=== PATIENT | female | born 1965 | race Caucasian/White ===

== ENCOUNTER 2018-08-31 06:10 | Day surgery (SDC) | payer BC ==
[2018-08-31] MEDS ORDERED: DIPRIVAN 200 MG/20 ML IV ONE (06:11)
[2018-08-31] MEDS ORDERED: Ketamine HCl 50 MG/ML IJ ONE (06:11)
[2018-08-31] MEDS ORDERED: Lactated Ringers 1,000 ML IV SCH (07:00)
[2018-08-31 09:10] VITALS: BP 146/82; PULSE 66; O2SAT 97
--- NOTE | 2018-08-31 10:13 | OP ---
SURGERY DATE/TIME: 08/31/2018 0807 PREOPERATIVE DIAGNOSIS: Screening exam. POSTOPERATIVE DIAGNOSIS: Normal colon. PROCEDURE: Colonoscopy. SURGEON: Dr. Dooley. ANESTHESIA: MAC. Medications given by anesthesia department. HISTORY: The patient is a 53 year-old white female presenting now for colonoscopy. She was appraised of the risks of the procedure including the risk of perforation, phlebitis, untoward reaction to medication, bleeding and missed lesions. The patient verbalized her understanding and desired to have the procedure performed. DESCRIPTION OF PROCEDURE: The patient was given the medications by the anesthesia department. She had continuous pulse oximetry, ECG monitoring, intermittent blood pressure monitoring and tidal CO2 monitoring during the examination. She was placed in the left lateral decubitus position. A digital rectal examination was performed and revealed normal anal sphincter tone and no masses. The flexible Olympus pediatric colonoscope was used to intubate the rectum. A view of the colon was developed sequentially to the cecum. Upon insertion and withdrawal, including a retroflex view in the rectum, no mucosal lesions were encountered. The scope was removed from the patient who tolerated the procedure well and was sent back to OP recovery in good condition. The prep was noted to be fair to good.
== END 2018-08-31 09:45 | disposition home or self-care (01) ==
LOC: SDC 06:10
PROVIDERS: ATTEND Family Medicine
DX: Z12.11 Encounter for screening for malignant neoplasm of colon (principal)
CPT/HCPCS: 94250; J2704

== ENCOUNTER 2023-06-19 15:11 | Emergency (ER) | payer BC, OTHER ==
[2023-06-19] MEDS ORDERED: TORAdol 30 mg Injection IV ONE (15:24)
[2023-06-19] MEDS ORDERED: Zofran 4 MG/2 ML VIAL IV ONE (15:24)
[2023-06-19] MEDS ORDERED: Sodium Chloride 0.9% 1000 ML 1,000 ML IV STA (15:24)
--- NOTE | 2023-06-19 15:24 | ERPHSYRPT ---
- History of Present Illness Historian: patient Exam Limitations: no limitations Hx Influenza Vaccination/Date Given: Yes Hx Pneumococcal Vaccination/Date Given: Yes <ZOHRA HARE - Last Filed: 06/19/23 18:54> <KARO COLLINS - Last Filed: 06/19/23 21:04> - History of Present Illness Time Seen by Provider: 06/19/23 15:16 Physician History: For the past 3 days pt has had sharp constant right lower back pain, RLQ abdominal pain and right flank pain up to 10/10 in severity. LBM was 6 days ago & without blood. Pt also c/o shortness of air and minimal chest pain for the past 2 hours. Pt denies nausea and vomiting. (ZOHRA HARE) Allergies/Adverse Reactions: prochlorperazine edisylate [From Compazine] Allergy (Verified 06/19/23 15:19) tongue swollen prochlorperazine maleate [From Compazine] Allergy (Verified 06/19/23 15:19) tongue swollen Home Medications: Levothyroxine Sodium 100 Mcg [Synthroid 100 Mcg] 75 mcg PO DAILY 10/04/13 [History] buPROPion HCL [Wellbutrin Sr] See Rx Instructions .ROUTE .COMPLEX 08/22/18 [History] Amlodipine Besylate 5 mg [Norvasc 5 mg] 5 mg PO HS 06/19/23 [History] Ascorbic Acid [Vitamin C] 1,000 mg PO DAILY 06/19/23 [History] Atenolol 50 mg [Tenormin 50 mg] 50 mg PO DAILY 06/19/23 [History] Cariprazine HCl [Vraylar] 3 mg PO DAILY 06/19/23 [History] Desvenlafaxine Succinate [Desvenlafaxine Succinate ER] 100 mg PO DAILY 06/19/23 [History] Diclofenac Sodium 75 mg PO DAILY PRN 06/19/23 [History] Multivitamin 1 tab PO DAILY 06/19/23 [History] Rosuvastatin Calcium 5 mg PO DAILY 06/19/23 [History] terbinafine HCL [Terbinafine HCl] 250 mg PO DAILY 06/19/23 [History] - Review of Systems Constitutional: No Fever, No Chills Respiratory: Dyspnea Cardiac: Chest Pain (minimal since 2 hours ago) Abdominal/Gastrointestinal: Abdominal Pain, No Nausea, No Vomiting Genitourinary Symptoms: No Dysuria Musculoskeletal: Back Pain Neurological: No Headache <ZOHRA HARE - Last Filed: 06/19/23 18:54> - Past Medical History Pertinent Past Medical History: Yes Neurological History: Migraines ENT History: No Pertinent History Cardiac History: Hypertension Respiratory History: No Pertinent History Endocrine Medical History: Hypothyroidism Musculoskeletal History: No Pertinent History GI Medical History: Hemorrhoids History: No Pertinent History Psycho-Social History: Depression Female Reproductive Disorders: No Pertinent History - Past Surgical History Past Surgical History: Yes Neuro Surgical History: No Pertinent History Cardiac: No Pertinent History Respiratory: No Pertinent History Gastrointestinal: No Pertinent History Genitourinary: No Pertinent History Musculoskeletal: Other Female Surgical History: Section Other Surgical History: ear surgery stapemdectomy both ears, c-sections times 2 - Social History Smoking Status: Never smoker Exposure to second hand smoke: No Drug Use: none <ZOHRA HARE - Last Filed: 06/19/23 18:54> - Physical Exam General Appearance: alert Eye Exam: other (conjunctivae injected bilaterally) Ears, Nose, Throat Exam: TMs normal, pharyngeal erythema (mild) Neck Exam: normal inspection Respiratory Exam: normal breath sounds Cardiovascular Exam: normal heart sounds Gastrointestinal/Abdomen Exam: soft, normal bowel sounds Back Exam: normal inspection, No CVA tenderness Neurologic Exam: alert, cooperative Skin Exam: warm, dry SpO2 Interpretation: normal SpO2: 92 O2 Delivery: Room Air <ZOHRA HARE - Last Filed: 06/19/23 18:54> - Nursing Vital Signs Nursing Vital Signs: Initial Vital Signs Temperature 97.2 F 06/19/23 15:12 Pulse Rate 93 H 06/19/23 15:12 Respiratory Rate 22 06/19/23 15:12 Blood Pressure 154/92 06/19/23 15:12 O2 Sat by Pulse Oximetry 92 L 06/19/23 15:12 Pain Scale Pain Intensity 4 - Course EKG Interpreted by Me: RATE (87), Sinus Rhythm, Left Gate Deviation - CT Exams Chest CT Interpretation: Discussed w/radiologist (No central PE. Cardiomegaly. Diffuse pulmonary edema & tiny bilateral effusions. Superimposed pneumonia not completely excluded.) Abdomen/Pelvis CT Interpretation: Discussed w/radiologist (Negative renal calculus or evidence for obstructive uropathy. Diffuse fecal stasis.) - Radiology Ultrasound Exam Gallbladder Ultrasound: Other (tech report: Negative.) <ZOHRA HARE - Last Filed: 06/19/23 18:54> Ordered Tests: Active Orders 24 hr Category Date Time Status EKG-ER Only STAT Care 06/19/23 15:24 Active IV Insertion STAT Care 06/19/23 15:24 Active IV Insertion-2nd Peripheral STAT Care 06/19/23 15:34 Active ABDOMEN AND PELVIS W/0 CONTRAS [CT] Stat Exams 06/19/23 15:25 Completed CHEST WITH CONTRAST [CT] Stat Exams 06/19/23 15:26 Completed GALLBLADDER [US] Stat Exams 06/19/23 16:15 Taken AMYLASE Stat Lab 06/19/23 15:37 Completed CBC W DIFF Stat Lab 06/19/23 15:37 Completed CMP Stat Lab 06/19/23 15:37 Completed LIPASE Stat Lab 06/19/23 15:37 Completed Lactic Acid Stat Lab 06/19/23 15:32 Completed NT PRO BNPII Stat Lab 06/19/23 15:37 Completed TROPONIN Q4H Lab 06/19/23 15:37 Completed TROPONIN Q4H Lab 06/19/23 17:21 Completed TROPONIN Q4H Lab 06/19/23 23:30 Ordered TROPONIN Q4H Lab 06/20/23 01:15 Ordered UA W/RFX UR CULTURE Stat Lab 06/19/23 17:35 Completed VENOUS BLOOD GAS Stat Lab 06/19/23 15:32 Completed Medication Summary Generic Name Dose Route Start Last Admin Trade Name Freq PRN Reason Stop Dose Admin Norepinephrine/Dextrose 8 mg in 250 mls @ 15 mls/hr 06/19/23 20:27 06/19/23 20:36 Norepinephrine 8 Mg/250 Ml-D5w IV 07/19/23 20:26 2 mcg/min .[id number] PRN 3.75 mls/hr HYPOTENSION Administration Protocol 8 MCG/MIN Discontinued Medications Generic Name Dose Route Start Last Admin Trade Name Freq PRN Reason Stop Dose Admin Aspirin 324 mg 06/19/23 16:27 06/19/23 16:29 Aspirin 81 Mg Tab.Chew PO 06/19/23 16:28 324 mg STAT ONE Administration Aspirin Confirm 06/19/23 16:29 Aspirin 81 Mg Tab.Chew Administered 06/19/23 16:30 Dose 324 mg .ROUTE .STK-MED ONE Furosemide 40 mg 06/19/23 17:38 06/19/23 17:41 Furosemide 40 Mg/4 Ml Vial IV 06/19/23 17:39 40 mg STAT ONE Administration Furosemide Confirm 06/19/23 17:40 Furosemide 40 Mg/4 Ml Vial Administered 06/19/23 17:41 Dose 40 mg .ROUTE .STK-MED ONE Sodium Chloride 1,000 mls @ 999 mls/hr 06/19/23 15:24 06/19/23 16:43 Sodium Chloride 0.9% 1000 Ml IV 06/19/23 16:24 Infused .Q1H1M STA Infusion Sodium Chloride Confirm 06/19/23 15:40 Sodium Chloride 0.9% 1000 Ml Administered 06/19/23 15:41 Dose 1,000 mls @ ud .ROUTE .STK-MED ONE Ketorolac Tromethamine 30 mg 06/19/23 15:24 06/19/23 15:43 Ketorolac Tromethamine 30 Mg/Ml Inj IV 06/19/23 15:25 30 mg STAT ONE Administration Ketorolac Tromethamine Confirm 06/19/23 15:40 Ketorolac Tromethamine 30 Mg/Ml Inj Administered 06/19/23 15:41 Dose 30 mg .ROUTE .STK-MED ONE Ondansetron HCl 4 mg 06/19/23 15:24 06/19/23 15:43 Ondansetron Hcl 4 Mg/2 Ml Vial IV 06/19/23 15:25 4 mg STAT ONE Administration Ondansetron HCl Confirm 06/19/23 15:40 Ondansetron Hcl 4 Mg/2 Ml Vial Administered 06/19/23 15:41 Dose 4 mg .ROUTE .STK-MED ONE Lab/Rad Data: Laboratory Result Diagrams 06/19/23 15:37 06/19/23 15:37 Laboratory Results 06/19/23 06/19/23 06/19/23 Range/Units 17:35 17:21 15:42 WBC (4.0-10.5) x10^3/uL RBC (4.1-5.4) x10^6/uL Hgb (12.0-16.0) g/dL Hct (35-47) % MCV (78-100) fL MCH (26-32) pg MCHC (32-36) g/dL RDW (11.5-14.0) % Plt Count (150-450) x10^3/uL MPV (7.5-11.0) fL Gran % (36.0-66.0) % Immature Gran % (Auto) (0.00-0.4) % Nucleat RBC Rel Count (0.00-0.1) % Eos # (Auto) (0-0.5) x10^3/uL Immature Gran # (Auto) (0.00-0.03) x10^3u/L Absolute Lymphs (auto) (1.0-4.6) x10^3/uL Absolute Monos (auto) (0.0-1.3) x10^3/uL Absolute Nucleated RBC (0.00-0.01) x10^3u/L Lymphocytes % (24.0-44.0) % Monocytes % (0.0-12.0) % Eosinophils % (0.00-5.0) % Basophils % (0.0-0.4) % Absolute Granulocytes (1.4-6.9) x10^3/uL Basophils # (0-0.4) x10^3/uL pO2/FiO2 Ratio % VBG pH (7.32-7.42) VBG pCO2 at Pat Temp (42-55) mm/Hg VBG pO2 at Pat Temp (25-40) mm/Hg VBG HCO3 (22-28) meq/L VBG O2 Sat (Shana) (95-100) VBG Base Excess (-2.0-2.0) VBG Hemoglobin VBG Carboxyhemoglobin (0.0-6.9) % T HGB POC Potassium (3.5-5.1) Sodium (137-145) mmol/L Potassium (3.5-5.1) mmol/L Chloride (98-107) mmol/L Carbon Dioxide (22-30) mmol/L Anion Gap (5-15) MEQ/L BUN (7-17) mg/dL Creatinine (0.52-1.04) mg/dL Estimated GFR ML/MIN Glucose (74-106) mg/dL Lactic Acid (0.4-2.0) Calcium (8.4-10.2) mg/dL Total Bilirubin (0.2-1.3) mg/dL AST (14-36) U/L ALT (0-35) U/L Alkaline Phosphatase (38-126) U/L Troponin I 0.249 H* (0.000-0.034) ng/mL NT-Pro-B Natriuret Pep (<300) pg/mL Serum Total Protein (6.3-8.2) g/dL Albumin (3.5-5.0) g/dL Amylase (30-110) U/L Lipase (23-300) U/L Urine Color Dark Yellow A (Yellow) Urine Appearance Clear (Clear) Urine pH 6.0 (4.6-8.0) Ur Specific Raymond >=1.030 A (1.005-1.030) Urine Protein 30 (Negative) Urine Glucose (UA) Negative (Negative) mg/dL Urine Ketones Negative (Negative) Urine Blood Negative (Negative) Urine Nitrite Negative (Negative) Urine Bilirubin Small A (Negative) Urine Urobilinogen 1.0 A (0.2) mg/dL Ur Leukocyte Esterase Trace A (Negative) U Hyaline Cast (Auto) NONE SEEN (0-2) /LPF Urine Microscopic RBC 0-2 (0-5) /HPF Urine Microscopic WBC 0-2 (0-5) /HPF Ur Epithelial Cells Few (None Seen) /HPF Urine Bacteria None Seen (None Seen) /HPF Urine Culture Reflexed NO (NO) Group A Strep Antibody NOT DETECTED (NEGATIVE) 06/19/23 06/19/23 06/19/23 Range/Units 15:37 15:37 15:37 WBC (4.0-10.5) x10^3/uL RBC (4.1-5.4) x10^6/uL Hgb (12.0-16.0) g/dL Hct (35-47) % MCV (78-100) fL MCH (26-32) pg MCHC (32-36) g/dL RDW (11.5-14.0) % Plt Count (150-450) x10^3/uL MPV (7.5-11.0) fL Gran % (36.0-66.0) % Immature Gran % (Auto) (0.00-0.4) % Nucleat RBC Rel Count (0.00-0.1) % Eos # (Auto) (0-0.5) x10^3/uL Immature Gran # (Auto) (0.00-0.03) x10^3u/L Absolute Lymphs (auto) (1.0-4.6) x10^3/uL Absolute Monos (auto) (0.0-1.3) x10^3/uL Absolute Nucleated RBC (0.00-0.01) x10^3u/L Lymphocytes % (24.0-44.0) % Monocytes % (0.0-12.0) % Eosinophils % (0.00-5.0) % Basophils % (0.0-0.4) % Absolute Granulocytes (1.4-6.9) x10^3/uL Basophils # (0-0.4) x10^3/uL pO2/FiO2 Ratio % VBG pH (7.32-7.42) VBG pCO2 at Pat Temp (42-55) mm/Hg VBG pO2 at Pat Temp (25-40) mm/Hg VBG HCO3 (22-28) meq/L VBG O2 Sat (Shana) (95-100) VBG Base Excess (-2.0-2.0) VBG Hemoglobin VBG Carboxyhemoglobin (0.0-6.9) % T HGB POC Potassium (3.5-5.1) Sodium 134 L (137-145) mmol/L Potassium 3.9 (3.5-5.1) mmol/L Chloride 97 L (98-107) mmol/L Carbon Dioxide 26 (22-30) mmol/L Anion Gap 14.9 (5-15) MEQ/L BUN 13 (7-17) mg/dL Creatinine 0.83 (0.52-1.04) mg/dL Estimated GFR > 60.0 ML/MIN Glucose 99 (74-106) mg/dL Lactic Acid (0.4-2.0) Calcium 8.8 (8.4-10.2) mg/dL Total Bilirubin 1.70 H (0.2-1.3) mg/dL AST 195 H (14-36) U/L ALT 359 H (0-35) U/L Alkaline Phosphatase 834 H (38-126) U/L Troponin I 0.196 H* (0.000-0.034) ng/mL NT-Pro-B Natriuret Pep 5880 (<300) pg/mL Serum Total Protein 6.7 (6.3-8.2) g/dL Albumin 3.9 (3.5-5.0) g/dL Amylase 68 (30-110) U/L Lipase 154 (23-300) U/L Urine Color (Yellow) Urine Appearance (Clear) Urine pH (4.6-8.0) Ur Specific Raymond (1.005-1.030) Urine Protein (Negative) Urine Glucose (UA) (Negative) mg/dL Urine Ketones (Negative) Urine Blood (Negative) Urine Nitrite (Negative) Urine Bilirubin (Negative) Urine Urobilinogen (0.2) mg/dL Ur Leukocyte Esterase (Negative) U Hyaline Cast (Auto) (0-2) /LPF Urine Microscopic RBC (0-5) /HPF Urine Microscopic WBC (0-5) /HPF Ur Epithelial Cells (None Seen) /HPF Urine Bacteria (None Seen) /HPF Urine Culture Reflexed (NO) Group A Strep Antibody (NEGATIVE) 06/19/23 06/19/23 06/19/23 Range/Units 15:37 15:32 15:32 WBC 6.5 (4.0-10.5) x10^3/uL RBC 3.76 L (4.1-5.4) x10^6/uL Hgb 9.8 L (12.0-16.0) g/dL Hct 30.4 L (35-47) % MCV 80.9 (78-100) fL MCH 26.1 (26-32) pg MCHC 32.2 (32-36) g/dL RDW 14.1 H (11.5-14.0) % Plt Count 243 (150-450) x10^3/uL MPV 10.7 (7.5-11.0) fL Gran % 77.3 H (36.0-66.0) % Immature Gran % (Auto) 1.2 H (0.00-0.4) % Nucleat RBC Rel Count 0.0 (0.00-0.1) % Eos # (Auto) 0.22 (0-0.5) x10^3/uL Immature Gran # (Auto) 0.08 H (0.00-0.03) x10^3u/L Absolute Lymphs (auto) 0.88 L (1.0-4.6) x10^3/uL Absolute Monos (auto) 0.27 (0.0-1.3) x10^3/uL Absolute Nucleated RBC 0.00 (0.00-0.01) x10^3u/L Lymphocytes % 13.5 L (24.0-44.0) % Monocytes % 4.1 (0.0-12.0) % Eosinophils % 3.4 (0.00-5.0) % Basophils % 0.5 (0.0-0.4) % Absolute Granulocytes 5.03 (1.4-6.9) x10^3/uL Basophils # 0.03 (0-0.4) x10^3/uL pO2/FiO2 Ratio 21.0 % VBG pH 7.38 (7.32-7.42) VBG pCO2 at Pat Temp 44 (42-55) mm/Hg VBG pO2 at Pat Temp 24 L (25-40) mm/Hg VBG HCO3 26.0 (22-28) meq/L VBG O2 Sat (Shana) 32.0 L (95-100) VBG Base Excess 0.6 (-2.0-2.0) VBG Hemoglobin 10.2 VBG Carboxyhemoglobin 2.3 (0.0-6.9) % T HGB POC Potassium 3.7 (3.5-5.1) Sodium (137-145) mmol/L Potassium (3.5-5.1) mmol/L Chloride (98-107) mmol/L Carbon Dioxide (22-30) mmol/L Anion Gap (5-15) MEQ/L BUN (7-17) mg/dL Creatinine (0.52-1.04) mg/dL Estimated GFR ML/MIN Glucose (74-106) mg/dL Lactic Acid 1.3 (0.4-2.0) Calcium (8.4-10.2) mg/dL Total Bilirubin (0.2-1.3) mg/dL AST (14-36) U/L ALT (0-35) U/L Alkaline Phosphatase (38-126) U/L Troponin I (0.000-0.034) ng/mL NT-Pro-B Natriuret Pep (<300) pg/mL Serum Total Protein (6.3-8.2) g/dL Albumin (3.5-5.0) g/dL Amylase (30-110) U/L Lipase (23-300) U/L Urine Color (Yellow) Urine Appearance (Clear) Urine pH (4.6-8.0) Ur Specific Raymond (1.005-1.030) Urine Protein (Negative) Urine Glucose (UA) (Negative) mg/dL Urine Ketones (Negative) Urine Blood (Negative) Urine Nitrite (Negative) Urine Bilirubin (Negative) Urine Urobilinogen (0.2) mg/dL Ur Leukocyte Esterase (Negative) U Hyaline Cast (Auto) (0-2) /LPF Urine Microscopic RBC (0-5) /HPF Urine Microscopic WBC (0-5) /HPF Ur Epithelial Cells (None Seen) /HPF Urine Bacteria (None Seen) /HPF Urine Culture Reflexed (NO) Group A Strep Antibody (NEGATIVE) - Progress Progress: unchanged Discussed with Dr.: Other (Spoke with Dr. Solomon([id number]) - call hospitalist at [facility] & transfer pt to [facility].) Counseled pt/family regarding: lab results, diagnosis, rad results <ZOHRA HARE - Last Filed: 06/19/23 18:54> <KARO COLLINS - Last Filed: 06/19/23 21:04> - Progress Progress Note: 06/19/23 21:[address] Sanchez the hospitalist at [facility]. I reviewed the patient's medical history, the patient's presenting complaint, work-up performed and the results of those studies. I also reviewed the patient response to our intervention. He accepts the patient in transfer. (KARO COLLINS) Medical Desision Making - Diagnostic Testing Diagnostic test were ordered, analyzed, and reviewed by me: Yes Radiological Interpretation: Discussed w/ radiologist <ZOHRA HARE - Last Filed: 06/19/23 18:54> - Independent Historian Additional History obtained from: Relative/friend - Discussion of managment [facility] Reviewed:: Test results, Need for additional workup - Risk of complications The pt has a high risk of morbidity or mortality based on: Decision regarding hospitilization or escalation of hosp level of care <KARO COLLINS - Last Filed: 06/19/23 21:04> - Departure Departure Disposition: Home () <ZOHRA HARE - Last Filed: 06/19/23 18:54> - Departure Departure Disposition: Transfer Critical Care Time: Yes Critical Care Time(excluding separately billable procedures): Critical 30-74 mins (60 minutes) <KRAO COLLINS - Last Filed: 06/19/23 21:04> - Departure Clinical Impression: Elevated troponin, Dyspnea, Elevated AST & ALT, Elevated bilirbin & Alkaline Phosphatase, RLQ abdominal pain, Right flank pain, Right back pain, CHF (congestive heart failure), Non-STEMI (non-ST elevated myocardial infarction), Hypotension Condition: Fair Referrals: SEAN THOMPSON [Primary Care Provider] - Follow up/PCP as directed Instructions: Heart Failure
[2023-06-19 15:37] LABS: VBG BASE EXCESS 0.6 (-2.0-2.0); VBG CARBOXYHEMOGLOBIN 2.3 % T HGB (0.0-6.9); VBG HEMOGLOBIN 10.2; VBG POTASSIUM 3.7 (3.5-5.1); VBG pH 7.38 (7.32-7.42)
[2023-06-19 15:38] LABS: Absolute Neutrophil Ct (ANC) 5.03 x10^3/uL (1.4-6.9); BASOPHIL % 0.5 % (0.0-0.4); Basophil (Absolute #) 0.03 x10^3/uL (0-0.4); Eosinophil % 3.4 % (0.00-5.0); Eosinophil (Absolute #) 0.22 x10^3/uL (0-0.5); Hematocrit 30.4 % (35-47); Hemoglobin 9.8 g/dL (12.0-16.0); IMMATURE GRAN # 0.08 x10^3u/L (0.00-0.03); IMMATURE GRAN % 1.2 % (0.00-0.4); Lymphocyte (Absolute #) 0.88 x10^3/uL (1.0-4.6); Lymphocytes % 13.5 % (24.0-44.0); Mean Cell Volume 80.9 fL (78-100); Mean Corpuscular Hemoglobin 26.1 pg (26-32); Mean Corpuscular Hgb Concent. 32.2 g/dL (32-36); Mean Platelet Volume 10.7 fL (7.5-11.0); Monocyte (Absolute #) 0.27 x10^3/uL (0.0-1.3); Monocytes % 4.1 % (0.0-12.0); Neutrophil % 77.3 % (36.0-66.0); Platelet Count 243 x10^3/uL (150-450); Red Blood Count 3.76 x10^6/uL (4.1-5.4); Red Cell Distribution Width 14.1 % (11.5-14.0); White Blood Count 6.5 x10^3/uL (4.0-10.5)
[2023-06-19] MEDS ORDERED: Zofran 4 MG/2 ML VIAL ONE (15:40)
[2023-06-19] MEDS ORDERED: Sodium Chloride 0.9% 1000 ML 1,000 ML ONE (15:40)
[2023-06-19] MEDS ORDERED: TORAdol 30 mg Injection ONE (15:40)
[2023-06-19 15:51] LABS: ALBUMIN 3.9 g/dL (3.5-5.0); ALKALINE PHOSPHATASE 834 U/L (38-126); AMYLASE 68 U/L (30-110); ANION GAP 14.9 MEQ/L (5-15); BLOOD UREA NITROGEN 13 mg/dL (7-17); CHLORIDE 97 mmol/L (98-107); Calcium 8.8 mg/dL (8.4-10.2); Carbon Dioxide 26 mmol/L (22-30); Creatinine 1 0.83 mg/dL (0.52-1.04); EST GLOMERULAR FILTRATION RATE > 60.0 ML/MIN; Glucose 99 mg/dL (74-106); LIPASE 154 U/L (23-300); Potassium 3.9 mmol/L (3.5-5.1); SGOT/AST 195 U/L (14-36); SGPT/ALT 359 U/L (0-35); SODIUM 134 mmol/L (137-145); Total Protein 6.7 g/dL (6.3-8.2)
[2023-06-19] MEDS ORDERED: BABY ASPIRIN 81 MG CHEW PO ONE (16:27)
[2023-06-19] MEDS ORDERED: BABY ASPIRIN 81 MG CHEW ONE (16:29)
--- NOTE | 2023-06-19 17:08 | XRAY ---
Indication: Dyspnea. Pulmonary embolus. Multiple contiguous axial images obtained through the chest using 80 cc Isovue 370 contrast and PE protocol. Comparison: None Good opacification of the pulmonary arteries. However diffuse respiration artifact limits evaluation for pulmonary embolus. No central pulmonary embolus. Heart is enlarged. Aorta is normal in course and caliber. No pathologic mediastinal/hilar lymphadenopathy. Lungs demonstrates mild diffuse pulmonary edema with tiny bibasilar effusions favor cardiac decompensation/CHF. Superimposed pneumonia not completely excluded. Mild scattered subsegmental atelectasis/scarring. Bony thorax intact with mild degenerative changes. CT abdomen/pelvis report separately. Impression: 1. Diffuse respiration artifact limits evaluation for pulmonary embolus. No obvious central pulmonary embolus. 2. Cardiomegaly, diffuse pulmonary edema, and tiny bilateral effusions. Rule out cardiac decompensation/CHF. Superimposed pneumonia not completely excluded.
--- NOTE | 2023-06-19 17:10 | XRAY ---
Indication: Right low back pain. Multiple contiguous axial images obtained through the abdomen and pelvis without contrast using renal stone protocol. Comparison: None CT chest reported separately. No renal calculus or evidence for obstructive uropathy in either system. Noncontrasted stomach and bowel loops appear nonobstructed with normal appendix. There is mild/moderate diffuse scattered colonic fecal debris throughout. Previous hysterectomy. Mild diffuse fatty liver. No free fluid/air. Remaining liver, gallbladder, pancreas, spleen, adrenal glands, kidneys, ureters, and bladder are unremarkable for noncontrast exam. Minimal aortoiliac calcifications without AAA. Osseous structures/lumbar spine intact. Impression: 1. Negative renal calculus or evidence for obstructive uropathy. 2. Diffuse fecal stasis. 3. Remaining CT abdomen/pelvis without contrast exam is negative.
[2023-06-19] MEDS ORDERED: Lasix 40 MG/4 ML IV ONE (17:38)
[2023-06-19] MEDS ORDERED: Lasix 40 MG/4 ML ONE (17:40)
[2023-06-19 17:45] LABS: Appearance Clear (Clear); Bacteria None Seen /HPF (None Seen); Bilirubin Small (Negative); Blood Negative (Negative); Epithelial Cells Few /HPF (None Seen); Glucose, Urine Negative (Negative); Hyaline Casts NONE SEEN /LPF (0-2); Ketones Negative (Negative); Leukocyte Esterase Trace (Negative); Nitrite Negative (Negative); Protein,Urine Dip 30 (Negative); RBC 0-2 /HPF (0-5); Specific Gravity >=1.030 (1.005-1.030)
[2023-06-19 17:48] LABS: WBC 0-2 /HPF (0-5)
[2023-06-19 17:49] LABS: ADD URINE CULTURE? NO (NO)
[2023-06-19] MEDS ORDERED: NOREPINEPHRINE 8 MG/250 ML-D5W 8 MG/250 ML PLAST..BAG IV PRN (20:27)
[2023-06-19] MEDS ORDERED: NOREPINEPHRINE 8 MG/250 ML-D5W 8 MG/250 ML PLAST..BAG IV ONE (20:34)
[2023-06-19] MEDS ORDERED: Lasix 20 MG/2 ML IV ONE (22:07)
[2023-06-19] MEDS ORDERED: Lasix 20 MG/2 ML ONE (22:11)
[2023-06-19 22:38] LABS: A-aADO2 320; ABG POTASSIUM 3.6 (3.5-5.1); ABG SITE RIGHT BRACHIAL; ARTERIAL BLD GAS O2 SATURATION 95.9 % (95-100); ARTERIAL BLOOD GAS BASE EXCESS -1.9 (-2.0-2.0); ARTERIAL BLOOD GAS FIO2 60 %; ARTERIAL BLOOD GAS PCO2 32 mmHg (35-45); ARTERIAL BLOOD GAS PO2 68 mmHg (75-100); ARTERIAL BLOOD GAS pH 7.44 (7.35-7.45); CARBOXYHEMOGLOBIN 1.3 % THgb (0.0-6.9); HCO3- 21.7 (22-28); HGB O2 SAT 93.6 g/dF (94-100); Methhemoglobin 1.1 % (1.4-1.5); paO2 pAO1 0.18
[2023-06-19] MEDS ORDERED: TYLENOL 325 MG PO ONE (22:59)
[2023-06-19 23:10] VITALS: TEMP 101.8
[2023-06-19] MEDS ORDERED: TYLENOL 325 MG ONE (23:12)
[2023-06-20 00:07] VITALS: BP 94/60; PULSE 100; RESP 36; O2SAT 92
--- NOTE | 2023-06-20 08:57 | XRAY ---
Indication: Pain. Two-dimensional gallbladder sonogram performed. Comparison: None Visualized gallbladder normally distended without gallstones, wall thickening, or pericholecystic fluid. Common bile duct measures 5.9 mm. No intrahepatic biliary distention. Hepatomegaly measuring 21.1 cm. No focal solid/cystic hepatic mass or free fluid. Remaining visualized pancreas and right kidney are sonographically unremarkable. Right kidney measures 10.7 cm in length. Impression: Hepatomegaly. Remaining gallbladder sonogram is negative.
== END 2023-06-20 00:32 | disposition short-term general hospital (02) ==
LOC: ED 15:11
DX: I21.4 Non-ST elevation (NSTEMI) myocardial infarction (principal); I11.0 Hypertensive heart disease with heart failure; I50.9 Heart failure, unspecified; R77.8 Other specified abnormalities of plasma proteins; R06.00 Dyspnea, unspecified; R74.8 Abnormal levels of other serum enzymes; R74.01 Elevation of levels of liver transaminase levels; E80.6 Other disorders of bilirubin metabolism; R10.31 Right lower quadrant pain; R10.9 Unspecified abdominal pain; M54.9 Dorsalgia, unspecified; I95.9 Hypotension, unspecified; R07.9 Chest pain, unspecified; Z79.899 Other long term (current) drug therapy
CPT/HCPCS: 36000; 36415; 36600; 51702; 71260; 74176; 76705; 80053; 81001; 82150; 82375; 82803; 82805; 83605; 83690; 83880; 84484; 85025; 87086; 87651; 93005; 96365; 96374; 96375; 96376; 99285; 99291; J1885; J1940; J2405; A9270-GY